=== PATIENT | male | born 1975 | race Caucasian/White ===

== ENCOUNTER 2025-07-13 23:06 | Emergency (ER) | payer SELFPAY ==
[~2025-07-13] VITALS: Ht 170.2 cm; Wt 90.2 kg
[2025-07-13 23:29] VITALS: O2SAT 98
[2025-07-13] MEDS: IBUPROFEN 800MG TABLET PO ONE (23:51)
[2025-07-13] MEDS: TETANUS, DIPHTHERIA, PERTUSSIS VAC/PF 0.5ML (>10YR OLD) IM ONE (23:52)
[2025-07-14] MEDS: LIDOCAINE HCL 1% 20ML VIAL INFIL NR (01:57)
[2025-07-14 02:50] VITALS: BP 182/104; PULSE 85; RESP 14; TEMP 36.9; O2SAT 98
== END 2025-07-14 02:54 | disposition home or self-care (01) ==
LOC: ER 23:06
DX: S42.91XA Fracture of right shoulder girdle, part unspecified, initial encounter for closed fracture (principal); S51.012A Laceration without foreign body of left elbow, initial encounter; S50.01XA Contusion of right elbow, initial encounter; X58.XXXA Exposure to other specified factors, initial encounter; Y93.89 Activity, other specified; Y92.89 Other specified places as the place of occurrence of the external cause; Y99.8 Other external cause status
CPT/HCPCS: 73030; 73080; 90715; 12002; 90471; 99284; J2003; Z7610